=== PATIENT | female | born 1990 | race African-American/Black ===

== ENCOUNTER 2019-03-01 07:55 | Emergency (ER) | payer OTHER ==
[~2019-03-01] VITALS: Ht 162.6 cm; Wt 68.0 kg
[2019-03-01 08:01] VITALS: BP 117/76
[2019-03-01] MEDS ORDERED: NKM (08:04)
--- NOTE | 2019-03-01 08:06 | NUR ---
ED Nurse Note: Pt came in due to right shoulder pain since yesterday. Denies injury/trauma. Reports more pain when she moves. AAO x4 and ambulatory.
[2019-03-01] MEDS ORDERED: Tylenol #3 tab (300mg/30mg) PO ONE (08:30)
--- NOTE | 2019-03-01 09:19 | Diagnostic Imaging Report ---
EXAM: XR Right Shoulder Complete, 2 or More Views CLINICAL HISTORY: PAIN TECHNIQUE: Two or more views of the right shoulder. COMPARISON: No relevant prior studies available. FINDINGS: Bones joints: Unremarkable. Normal alignment is seen at the acromioclavicular and glenohumeral joints. No visible displaced fracture or dislocation. No osseous erosions. Coracoclavicular and subacromial spaces appear within normal limits. The clavicle and scapula appear intact. Soft tissues: Unremarkable. IMPRESSION: Unremarkable right shoulder x-rays.
[2019-03-01] MEDS ORDERED: ACETAMINOPHEN-1 EAC1 ORAL (09:43)
[2019-03-01 09:47] VITALS: BP 122/85
--- NOTE | 2019-03-01 09:47 | NUR ---
ER DISCHARGE NOTE: Patient is cleared to be discharged per ERMD, pt is aox4, on room air, with stable vital signs. pt was given dc and prescription instructions, pt was able to verbalize understanding, pt id band removed. pt is able to ambulate with steady gait. pt took all belongings and left with her mom.
--- NOTE | 2019-03-01 11:04 | Emergency Room Report ---
History of Present Illness General Chief Complaint: Upper Extremity Injury Source: Patient Present Illness HPI 28-year-old female presents ED for evaluation. Complaining of right shoulder pain. Started last night. Denies any fall or injury. States that she does do heavy lifting for her job. Pain is throbbing, 8 out of 10, nonradiating. Worse with abduction. Denies any neck pain. Denies any back pain. No other aggravating relieving factors. Denies any other associated symptoms Allergies: Coded Allergies: No Known Allergies (Unverified , 03/01/19) Patient History Past Medical History: none Past Surgical History: none Pertinent Family History: none Social History: Denies: smoking, alcohol use, drug use Now: No - Pt is on IUD Immunizations: UTD Reviewed Nursing Documentation: PMH: Agreed; PSxH: Agreed Nursing Documentation-PMH Past Medical History: No Stated History Review of Systems All Other Systems: negative except mentioned in HPI Physical Exam Vital Signs Date Time Temp Pulse Resp B/P (MAP) Pulse Ox O2 Delivery O2 Flow Rate FiO2 03/01/19 08:01 98.4 87 20 117/76 97 Room Air Sp02 EP Interpretation: reviewed, normal General Appearance: no apparent distress, alert, GCS 15, non-toxic Head: normocephalic Eyes: bilateral eye normal inspection, bilateral eye PERRL ENT: normal ENT inspection Neck: full range of motion, supple, no meningismus - d, supple/symm/no masses Respiratory: normal inspection Cardiovascular #1: normal inspection Gastrointestinal: normal inspection Rectal: deferred Genitourinary: no CVA tenderness Musculoskeletal: back normal, gait/station normal, decreased range of motion, tender - R shoulder Neurologic: alert, oriented x3, responsive, motor strength/tone normal, sensory intact, speech normal Psychiatric: normal inspection Skin: no rash Lymphatic: normal inspection Procedures Splinting Splinting : Consent: Verbal Pre-Made Type: sling Pre-Proc Neuro Vasc Exam: normal Post-Proc Neuro Vasc Exam: normal Patient Tolerated: Well Complications: None Medical Decision Making Diagnostic Impression: Primary Impression: Shoulder pain Qualified Codes: M25.511 - Pain in right shoulder ER Course Hospital Course 28-year-old F presents to ED complaining of R shoulder pain s/p lifting heavy boxes Differential diagnoses include: Fracture, dislocation, sprain, contusion Clinical course Patient placed on stretcher. After initial history and physical, I ordered pain medications and Xrays of shoulder Xrays read shows no acute fracture/dislocation. Shoulder sling. discussed findings with patient. Given pain with abduction consideration for rotator cuff versus tendon injury. Will discharge to home. Conservative therapy, modified activity. Pain meds. Follow-up with PMD. Will also provide orthopedic referral Diagnosis - shoulder pain Stable and discharged to home with prescription for tylenol #3. apply ice, keep elevated. weight bear as tolerated. Followup with PMD/ortho. Return to ED if symptoms recur or worsen Other X-Ray Diagnostic Results Other X-Ray Diagnostic Results : X-Ray ordered: R shoulder # of Views/Limited Vs Complete: 3 View Indication: Pain EP Interpretation: Yes Interpretation: no dislocation, no soft tissue swelling, no fractures Impression: No acute disease Electronically Signed by: Electronically signed by Jerry Zaidi MD Last Vital Signs Date Time Temp Pulse Resp B/P (MAP) Pulse Ox O2 Delivery O2 Flow Rate FiO2 03/01/19 09:47 98.3 75 16 122/85 98 Room Air Status: improved Disposition: HOME, SELF-CARE Condition: Stable Scripts Acetaminophen With Codeine (T#3) (TYLENOL #3 TAB*) Y Tab 1 TAB ORAL Q8H PRN for For Pain, #12 TAB Prov: Jerry Zaidi MD 03/01/19 [facility] 24 hour /7 days a week by Appointment Only [address] [facility] [address] [id number] Departure Forms: Return to Work Return to Work Date: Mar 03, 2019 Work Restrictions: No Heavy Lifting Patient Instructions: Shoulder Pain, [id number] Jerry Zaidi MD Mar 01, 2019 11:04
== END 2019-03-01 09:47 | disposition home or self-care (01) ==
LOC: EMR 08:24
DX: M25.511 Pain in right shoulder (principal)
CPT/HCPCS: 73030; Z7502; 29105; 99283